=== PATIENT | female | born 1975 | race Two or more races ===

== ENCOUNTER 2018-12-16 09:35 | Emergency (ER) | payer OTHER ==
[~2018-12-16] VITALS: Ht 175.3 cm; Wt 100.0 kg
[2018-12-16 10:22] VITALS: BP 100/68
[2018-12-16] MEDS ORDERED: MAGNESIUM SULFATE 1 GM/2 ML VIAL IM ONE ×2 (11:15→11:30)
[2018-12-16] MEDS ORDERED: KETOROLAC TROMETHAMINE 10 MG TABLET PO ONE (11:15)
== END 2018-12-16 11:52 | disposition home or self-care (01) ==
LOC: EDUNIT# 09:35 → EMS 09:38
DX: S13.4XXA Sprain of ligaments of cervical spine, initial encounter (principal); R51 Headache; V49.49XA Driver injured in collision with other motor vehicles in traffic accident, initial encounter; Y93.89 Activity, other specified; Y92.488 Other paved roadways as the place of occurrence of the external cause; Y99.8 Other external cause status
CPT/HCPCS: 96372; 99283; J3475